=== PATIENT | male | born 1955 | race Caucasian/White ===

== ENCOUNTER 2016-11-25 01:09 | Emergency (ER) | payer BC ==
--- NOTE | 2016-11-25 01:57 | ERNOTE ---
Upper Extremity HPI - Narrative Date of Service: 11/25/16 - General Extremities Pain Location: elbow: right Time Seen by Provider: 11/25/16 01:59 Source: patient Exam Limitations: no limitations - Immun/Allergies/Home Medications Immunizations: IMMUNIZATION HX Immunizations Up to Date Yes History of Influenza Vaccine No Allergies/Adverse Reactions: Allergies Allergy/AdvReac Type Severity Reaction Status Date / Time No Known Allergies Allergy Unverified 11/25/16 01:27 Home Medications: HOME MEDICATIONS Folic Acid 1 mg PO DAILY 11/25/16 [Last Taken Unknown] HYDROcodone/ACETAMINOPHEN [[place] 5-325 Tablet] 1 tab PO Q4H PRN #15 tab [Last Taken Unknown] Hydroxychloroquine Sulfate [Plaquenil] 200 mg PO BID 11/25/16 [Last Taken Unknown] Methotrexate Sodium [Methotrexate] 8 tab PO 11/25/16 [Last Taken Unknown] Metoprolol Tartrate 50 mg PO BID 11/25/16 [Last Taken Unknown] Omeprazole [Prilosec] 20 mg PO DAILY 11/25/16 [Last Taken Unknown] Simvastatin 20 mg PO HS 11/25/16 [Last Taken Unknown] predniSONE [Prednisone] 5 mg PO DAILY 11/25/16 [Last Taken Unknown] sulfaSALAzine [Azulfidine] 500 mg PO TID 11/25/16 [Last Taken Unknown] traZODone HCL [Trazodone HCl] 50 mg PO HS 11/25/16 [Last Taken Unknown] - History of Present Illness Narrative: 61 year old with a history of RA slipped in water causing him to fall on the right elbow about 2230 hours. Complaints of pain with motion of the elbow. No complaints of numbness, tingling or weakness in the right hand. No medications were taken prior to being seen in the ED. Date (Duration): 11/25/16 Occurred: just prior to arrival Location of Incident: home Severity: moderate Method of Injury: Reports: fell Reason for Fall: Reports: slipped - in water Loss of Consciousness: Denies: no loss of consciousness Modifying Factors - (Improves): Reports: rest Modifying Factors - (Worsens): Reports: movement Associated Symptoms: Denies: tingling, weakness, numbness distally, loss of feeling Other Injuries: Reports: none Review of Systems - Review of Systems Constitutional: Present: no symptoms reported EYE: Present: no symptoms reported ENT: Present: no symptoms reported Respiratory: Present: no symptoms reported Cardiology: Present: no symptoms reported Gastrointestinal/Abdominal: Present: no symptoms reported Genitourinary: Present: no symptoms reported Musculoskeletal: Present: See HPI Skin: Present: no symptoms reported Neurological: Present: no symptoms reported Endocrine: Present: no symptoms reported Hematologic/Lymphatic: Present: no symptoms reported - Patient's Past Medical History Patient History - Medical: Osteoarthritis, Rheumatoid Arthritis Patient History - Cardiac/Respiratory: Hypertension Patient History - Cancer: No Hx of Cancer Patient History - Surgical Procedures: Total Knee Replacement, T & A - Social History Living Situations: home Psych History: No pertinent hx Smoking Status: Never smoker Alcohol Use: occasionally Drug Use: none - Immunizations Immunizations Up to Date: Yes History of Influenza Vaccine: No Physical Exam - Physical Exam General Appearance: Present: mild distress Head Exam: Present: normal inspection Eye Exam: Normal inspection: bilateral Ears, Nose, Throat: Present: normal ENT inspection Neck: Present: normal inspection Respiratory: Present: no respiratory distress Gastrointestinal/Abdominal: Present: nondistended Back Exam: Present: normal inspection Extremity Exam: Present: other - right elbow- moderate effusion, diffuse tenderness; NV intact distally. Neurological Exam: Present: alert, oriented, normal mood/affect Skin Exam: Present: normal color ED Progress - Vital Signs Patient's Vital Signs:: I have reviewed the patient's vital signs. Vital Signs: Vital Signs 11/25/16 01:22 Temperature 36.8 C Pulse Rate 61 Respiratory 18 Rate Blood Pressure 180/108 O2 Sat by Pulse 92 Oximetry - X-Ray X-Ray #1 X-Ray: elbow Interpretation: Interp. by me X-ray Comments: DJD, anterior and posterior fat pads present. Possible radial head fracture. - Progress/Reassessment Chief Complaint: Upper Extremity Injury/Problem Progress:: Improved Progress Note-Subjective: 11/25/16 02:04 Posterior long arm splint placed. Departure Clinical Impression: Elbow fracture, right - Departure Disposition: Home self-care Condition: Fair Instructions: Elbow Fracture, Simple Print Language: Gabonese Referrals: Victoria Johnson CNP [Primary Care Provider] - Evan Reyes MD [Staff Physician] - Prescriptions: HYDROcodone/ACETAMINOPHEN [[place] 5-325 Tablet] 1 tab PO Q4H PRN #15 tab PRN Reason: Pain
[2016-11-25] MEDS ORDERED: HYDROmorphone HCL 1 MG/ML DISP.SYRIN IM ONE (01:58)
[2016-11-25] MEDS ORDERED: HYDROmorphone HCL 1 MG/ML DISP.SYRIN ONE (02:18)
[2016-11-25 04:15] VITALS: BP 154/101
== END 2016-11-25 02:40 | disposition home or self-care (01) ==
LOC: ER 01:09
PROC: 2W38X1Z Immobilization of Right Upper Extremity using Splint (ICD-10-PCS; principal; 2016-11-25)
DX: M84.433A Pathological fracture, right radius, initial encounter for fracture (principal); M19.90 Unspecified osteoarthritis, unspecified site; I10 Essential (primary) hypertension; W01.0XXA Fall on same level from slipping, tripping and stumbling without subsequent striking against object, initial encounter; Y92.009 Unspecified place in unspecified non-institutional (private) residence as the place of occurrence of the external cause